=== PATIENT | female | born 1995 | race African-American/Black ===

== ENCOUNTER 2019-06-21 21:53 | Emergency (ER) | payer OTHER ==
[~2019-06-21] VITALS: Ht 165.1 cm; Wt 81.6 kg
[2019-06-21 22:30] VITALS: BP_SYST 124
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
--- NOTE | 2019-06-21 22:35 | NUR ---
Pt placed to ER waiting room in stable condition with mother. Urine specimen cup provided.
--- NOTE | 2019-06-21 23:55 | NUR ---
Pt placed to ER bed 07, to gown. Pt's mother at bedside.
--- NOTE | 2019-06-22 00:10 | NUR ---
Dr. Rosales at bedside.
[2019-06-22 00:19] LABS: BILIRUBIN,URINE NEGATIVE (NEGATIVE); BLOOD, URINE 2+ (NEGATIVE); CLARITY/URINE CLEAR (CLEAR); COLOR,URINE YELLOW (YELLOW); GLUCOSE,URINE NEGATIVE (NEGATIVE); KETONES,URINE NEGATIVE (NEGATIVE); LEUKOCYTE ESTERASE ,URINE NEGATIVE (NEGATIVE); NITRITE, URINE NEGATIVE (NEGATIVE); PH,URINE 6.5 (5.0-8.0); PROTEIN URINE NEGATIVE (NEGATIVE)
--- NOTE | 2019-06-22 00:25 | NUR ---
Pelvic exam done by Dr Rosales accompanied by me, specimen for culture and wet mount sent to lab
--- NOTE | 2019-06-22 00:25 | NUR ---
Dr. Rosales at bedside to perform Pelvic exam. Gina, Charge nurse at bedside to slim.
[2019-06-22 00:33] LABS: CANNABINOID, URINE POSITIVE (NEG <=50)
[2019-06-22 00:34] LABS: BARBITURATE, URINE NEGATIVE (NEG <=200); BENZODIAZEPINE, URINE NEGATIVE (NEG <=150); COCAINE, URINE NEGATIVE (NEG <=150); METHAMPHETAMINES SCREEN,URINE NEGATIVE (NEG <=500); OPIATE, URINE NEGATIVE (NEG <=100); PHENCYCLIDINE SCREEN,URINE NEGATIVE (NEG <=25); UR TRICYCLIC ANTIDEPRESSANTS NEGATIVE (NEG <=300); URINE AMPHETAMINE NEGATIVE (NEG <=500); URINE METHADONE NEGATIVE (NEG <=200); URINE OXYCODONE SCREEN NEGATIVE (NEG <=100); URINE PROPOXYPHENE SCREEN NEGATIVE (NEG <=300)
[2019-06-22 00:48] LABS: BACTERIA,URINE FEW /HPF (None Seen); WBC,URINE 0-3 /HPF (0-3)
--- NOTE | 2019-06-22 01:35 | NUR ---
No needs verbalized at this time. Pt.s mother at bedside.
[2019-06-22] MEDS ORDERED: AZITHROMYCIN 250 MG TABLET PO ONE (02:45)
[2019-06-22] MEDS ORDERED: cefTRIAXone 250 MG in LIDOCAINE 1%, 20 ML MDV 0.9 ML IM ONE (02:45)
[2019-06-22] MEDS ORDERED: cefTRIAXone 250 MG VIAL ONE (03:02)
[2019-06-22] MEDS ORDERED: IBUPROFEN 600 MG TABLET PO ONE (03:15)
[2019-06-22 03:20] VITALS: BP_SYST 116
--- NOTE | 2019-06-22 03:20 | NUR ---
Patient given written and verbal discharge instructions and verbalizes understanding. ER MD discussed with patient the results and treatment provided. Patient in stable condition. ID arm band removed. No Rx given. Patient educated on pain management and to follow up with PMD. Pain Scale 3/10. Opportunity for questions provided and answered. Medication side effect fact sheet provided.
== END 2019-06-22 03:20 | disposition home or self-care (01) ==
LOC: SED 21:53
DX: N93.9 Abnormal uterine and vaginal bleeding, unspecified (principal); F12.90 Cannabis use, unspecified, uncomplicated; R10.2 Pelvic and perineal pain
CPT/HCPCS: 36415; 80307; 81000; 86592; 87070; 87210; 96372; 99283; J0696; Q0144; 87491; 87591